=== PATIENT | male | born 1955 | race Caucasian/White ===

== ENCOUNTER → 2019-06-10 | Outpatient (REF) ==
--- NOTE | 2019-06-10 22:12 | REP ---
Clinical: Pain and disability. Technique: AP, lateral, coned-down views of the lumbosacral spine. Findings: Alignment and lordosis maintained. No acute fracture / compression injury or subluxation. Mild scattered degenerative changes include endplate sclerosis with disc space narrowing and hypertrophic facet changes predominantly involving L5-S1 and L4-5. Impression: Mild degenerative changes primarily involving L4-5 and L5-S1. Electronically Signed by Leonardo Schuster MD 06/10/2019 10:03 P
== END ==
LOC: M SMT 10:17
PROVIDERS: ATTEND Internal Medicine
DX: Z02.71 Encounter for disability determination (principal)

== ENCOUNTER 2022-05-25 09:25 | Day surgery (SDC) | payer MEDICARE, BC, OTHER ==
[~2022-05-25] VITALS: Ht 182.9 cm; Wt 86.2 kg
[~2022-05-25 09:25] MED LIST: ALPR0.5T3 PO; D200CAP3 PO; LEVO100T5 PO; MELA10CA2 PO; MULT-40 PO; NS 1,000 ML IV ONE; OMEP40CA5 PO; OSTE5TAB PO; TAMS1CAP17 PO
[2022-05-25] MEDS ORDERED: propofoL 200 MG/20 ML VIAL As Ordered ONE ×2 (10:11→11:19)
[2022-05-25] MEDS ORDERED: fentaNYL 100 MCG/2 ML INJECTION As Ordered ONE (10:11)
[2022-05-25] MEDS ORDERED: LIDOCAINE 2% 100MG/5ML SDV (FOR ANES.) As Ordered ONE (10:11)
[2022-05-25] MEDS ORDERED: ePHEDrine SULFATE 25 MG/5 ML(5MG/ML) SYRINGE As Ordered ONE (11:28)
[2022-05-25 12:05] VITALS: BP 123/74
== END 2022-05-25 12:04 | disposition home or self-care (01) ==
LOC: M OPP 09:25
PROVIDERS: ATTEND Internal Medicine Gastroenterology
DX: Z12.11 Encounter for screening for malignant neoplasm of colon (principal); D12.6 Benign neoplasm of colon, unspecified; K57.30 Diverticulosis of large intestine without perforation or abscess without bleeding; K64.0 First degree hemorrhoids; K22.89 Other specified disease of esophagus; R12 Heartburn; Z79.899 Other long term (current) drug therapy
CPT/HCPCS: 43239; 45380; 88305; J3010